=== PATIENT | male | born 1945 | race Caucasian/White ===

== ENCOUNTER 2017-01-16 09:32 | Emergency (ER) | payer MEDICARE, MEDICAID ==
[2017-01-16 09:59] VITALS: BP 143/71
--- NOTE | 2017-01-16 11:30 | UC ---
Respiratory Complaint HPI - HPI Summary HPI Summary: Cough starting 2 days ago, had one temp taken of 99.5, usually "runs low." Today thick yellow production with cough. Hx of respiratory infections, not hospitalizations, per care worker. - History of Current Complaint Chief Complaint: UCRespiratory Stated Complaint: COUGH Time Seen by Provider: 01/16/17 11:15 Hx Obtained From: Family/Scarf And Anneal Operator Hx From Patient Unobtainable Due To: Dementia - cognitive impairment Onset/Duration: Gradual Onset, Lasting Days Timing: Constant Severity Initially: Mild Severity Currently: Mild Character: Cough: Productive Aggravating Factors: Nothing Alleviating Factors: Nothing Associated Signs And Symptoms: Negative: Chills, URI, Nasal Congestion - Allergies/Home Medications Allergies/Adverse Reactions: Allergies Allergy/AdvReac Type Severity Reaction Status Date / Time Metoclopramide [From Reglan] Allergy Severe mood Verified 01/16/17 09:59 changes Dantrolene [From Dantrium] Allergy Unknown Unknown Verified 01/16/17 09:59 Reaction Details Home Medications: Home Medications Calcium Carbonate-Vitamin D [Calcium + D3 600-200 mg-Unit] 1 tab PO DAILY [History Confirmed 01/16/17] Cholecalciferol [Vitamin D3] 1,000 unit PO DAILY 01/16/17 [History Confirmed ] Ferrous Sulfate TAB* 325 mg PO BID 01/16/17 [History Confirmed 01/16/17] Glumetza 1,000 mg PO BID 01/16/17 [History Confirmed 01/16/17] Levothyroxine TAB* [Synthroid TAB*] 50 mcg PO DAILY 01/16/17 [History Confirmed 01/16/17] Magnesium Oxide TAB* [MagOx 400 TAB*] 400 mg PO DAILY 01/16/17 [History Confirmed 01/16/17] Multivitamins/Minerals TAB* [Thera M Plus TAB*] 1 tab PO DAILY 01/16/17 [ History Confirmed 01/16/17] PMH/Surg Hx/FS Hx/Imm Hx Endocrine History Of: Denies: Diabetes Cardiovascular History Of: Denies: Cardiac Disorders Respiratory History Of: Denies: Asthma - Surgical History Surgical History: Yes Surgery Procedure, Year, and Place: ileostomy hernia repair 2011. colectomy 2010 - Family History Known Family History: Positive: Unknown - PT. HAS SEVERE MR , COULD NOT ASK ABOUT FAMILY HX - Social History Occupation: Disabled Lives: [facility] Alcohol Use: None Substance Use Type: None Smoking Status (MU): Never Smoked Tobacco Review of Systems Constitutional: Negative Skin: Negative Eyes: Negative ENT: Negative Respiratory: Cough Cardiovascular: Negative Gastrointestinal: Negative Genitourinary: Negative Motor: Negative Neurovascular: Negative Musculoskeletal: Negative Neurological: Negative Psychological: Negative All Other Systems Reviewed And Are Negative: Yes Physical Exam Triage Information Reviewed: Yes Appearance: Well-Appearing, No Pain Distress, Well-Nourished Vital Signs: Initial Vital Signs Temp 97.1 F 01/16/17 09:52 Pulse 95 01/16/17 09:52 Resp 20 01/16/17 09:52 BP 143/71 01/16/17 09:52 Pulse Ox 95 01/16/17 09:52 Vital Signs Reviewed: Yes Eye Exam: Normal Eyes: Positive: Conjunctiva Clear ENT: Positive: Pharynx normal, TMs normal - L TM poorly visualized due to lack of pt cooperation, Other: - copious drooling. Negative: Tonsillar swelling, Tonsillar exudate Neck exam: Normal Neck: Positive: Supple, Nontender Respiratory: Positive: Lungs clear, Normal breath sounds, No respiratory distress, No accessory muscle use Cardiovascular: Positive: RRR - high 90s on exam Musculoskeletal Exam: Other - contractures in hands, pt in WC Psychological Exam: Other - normal, per relations specialist Skin Exam: Normal UC Diagnostic Evaluation - Laboratory O2 Sat by Pulse Oximetry: 95 Respiratory Course/Dx - Differential Dx/Diagnosis Provider Diagnoses: acute bronchitis Discharge - Discharge Plan Condition: Stable Disposition: HOME Prescriptions: Azithromyxin CONSUELO (NF) [Z-Consuelo (Zithromax) 250 mg tabs #6] 2 tab PO .TODAY, THEN 1 DAILY #6 tab Patient Education Materials: Acute Bronchitis (ED) Referrals: LORENZO Ferrari [Primary Care Provider] - 1 Week Additional Instructions: As we discussed, I suspect Ernesto's illness is viral and so the antibiotic may not help him much at this time. I am prescribing it in the hopes of preventing bacterial complications. You can continue the respiratory checklist every shift for the next 5 days; if his cough is improving at that time you can stop after 01/21/17. If his cough is not improving in that time, please arrange for a follow-up visit with his primary care provider. Come back here or go to the emergency department at any time if he develops difficulty breathing, fever over 100F, or if he becomes lethargic (won't respond , eat, drink, or interact).
--- NOTE | 2017-01-16 12:06 | RAD ---
Indication: Cough. Fever. Comparison: None. Technique: Upright AP and lateral chest views. Report: Minimal linear subsegmental atelectasis at the LEFT lung base. No compelling alveolar consolidation without volume loss to suggest pneumonia. Suggestion of nonfocal central airway wall thickening. Negative for pleural effusion or pneumothorax. The heart, pulmonary vasculature, and mediastinal contours are unremarkable. IMPRESSION: The constellation of findings is concerning for central airways inflammation/bronchitis. Negative for confluent alveolar consolidation.
[2017-01-16] MEDS ORDERED: Azithromycin TAB* 250 MG PO ONE (12:20)
== END 2017-01-16 12:26 | disposition home or self-care (01) ==
LOC: UCCORT 09:32
DX: J20.9 Acute bronchitis, unspecified (principal); R09.81 Nasal congestion; F01.50 Vascular dementia, unspecified severity, without behavioral disturbance, psychotic disturbance, mood disturbance, and anxiety; F72 Severe intellectual disabilities; Z88.8 Allergy status to other drugs, medicaments and biological substances
CPT/HCPCS: 71020; 99212; A9270-GY; G0463

== ENCOUNTER 2018-02-01 16:09 | Emergency (ER) | payer MEDICARE, MEDICAID ==
--- NOTE | 2018-02-01 17:26 | UC ---
Skin Complaint HPI - HPI Summary HPI Summary: Pt nonverbal from a alf. pt noted to have rash on right upper back yesterday. Per report pt with temp 100 this morning Pt without h/o similar. no h /o MRSA. No shingles in alf. no apparent discomfort. No changes in activity - no changes in po, vomiting,cp, sob. + report of normal po, urine and BM Pt's medication list reviewed - History of Current Complaint Chief Complaint: UCSkin Time Seen by Provider: 02/01/18 17:15 Stated Complaint: SKIN COMPLAINT Hx Obtained From: Patient Hx From Patient Unobtainable Due To: Other - level 5 caveat- non verbal Pain Intensity: 0 - Allergy/Home Medications Allergies/Adverse Reactions: Allergies Allergy/AdvReac Type Severity Reaction Status Date / Time MS Metoclopramide Allergy Severe mood Verified 01/16/17 09:59 [From Reglan] changes MS Dantrolene [From Dantrium] Allergy Unknown Unknown Verified 01/16/17 09:59 Reaction Details dantrolene Allergy Unknown Verified 02/01/18 17:08 Reaction Details metoclopramide [From Reglan] Allergy See Comment Verified 02/01/18 17:08 Review of Systems Skin: Rash All Other Systems Reviewed And Are Negative: No - Comments Additional Review of Systems Comments: Pt non-verbal - level 5 caveat PMH/Surg Hx/FS Hx/Imm Hx Previously Healthy: Yes Cardiovascular History: Hypertension Neurological History: Seizures Psychological History: Other - MRCP Other Psychological History: MRCP - Surgical History Surgical History: Yes Surgery Procedure, Year, and Place: ileostomy hernia repair 2011. colectomy 2010 - Family History Known Family History: Positive: Unknown - PT. HAS SEVERE MR , COULD NOT ASK ABOUT FAMILY HX - Social History Occupation: Disabled Lives: [employer] Alcohol Use: None Substance Use Type: None Smoking Status (MU): Never Smoked Tobacco Physical Exam Triage Information Reviewed: Yes Appearance: Well-Appearing, No Pain Distress, Well-Nourished Vital Signs: Initial Vital Signs Temp 97.6 F 02/01/18 16:59 Pulse 63 02/01/18 16:59 Resp 20 02/01/18 16:59 BP 00/00 02/01/18 16:59 Pulse Ox 100 02/01/18 16:59 Eyes: Positive: Conjunctiva Clear ENT: Positive: Pharynx normal, TMs normal Dental Exam: Normal Neck exam: Normal Neck: Positive: Supple, Nontender Respiratory Exam: Normal Respiratory: Positive: Chest non-tender, Lungs clear, Normal breath sounds, No respiratory distress, No accessory muscle use Cardiovascular Exam: Normal Cardiovascular: Positive: RRR, No Murmur Abdominal Exam: Normal Abdomen Description: Positive: Nontender, No Organomegaly, Soft Bowel Sounds: Positive: Present Musculoskeletal: Positive: Other: - Pt wtih upper ext contracture - baseline per caregiver Neurological: Positive: Alert, Other: - increased muscle tone upper ext baseline Psychological Exam: Normal Skin: Positive: Other - right upper back pt with 2cm circular warmth area, not raise. 4 small punctate scabs in middle. No fluctuance. No drainage. no vesicals. Not apparent tenderness no other lesion Course/Dx - Course Course Of Treatment: pt with 2cm circuluar patch of erythema right upper back. pt non verbal MR. no apparent discomfort with palpation. Unclear if early shingles of cellultis. Will give Rx valtrex and Doxycycline. f/u withPCP in 2 days - anticipate one treatment will be stopped. wound covered with shirt. APAP prn. Aide expressed comfort and agreement with plan. forms complete. No discharge to culture - Diagnoses Provider Diagnoses: acute rash Discharge - Discharge Plan Condition: Stable Disposition: HOME Prescriptions: DOXYcycline CAP(*) [DOXYcycline 100MG CAP(*)] 100 mg PO BID #14 cap ValACYclovir (*) [Valtrex 1 GM(*)] 1 gm PO TID #21 tab Patient Education Materials: Acute Rash (ED) Referrals: LORENZO Ferrari [Primary Care Provider] - Additional Instructions: The doctor that evaluated you today is not sure if your rash is related to early shingles or a skin infection such as cellulitis. You have been started on medication to treat both of these. The rash has been outlined with a marking been you should be rechecked in 48 hours If the rash appears to spread in blotchy areas concerning for shingles. If you do not develop new lesions or the reddness gets smaller, likely a skin infection and your follow-up provider may discontinue the anti-viral Okay to give Tylenol as needed for fever or pain Contact his doctor to schedule a recheck in 2 days
[2018-02-01 17:56] VITALS: BP 148/90
== END 2018-02-01 17:57 | disposition home or self-care (01) ==
LOC: UCCORT 16:09
DX: R21 Rash and other nonspecific skin eruption (principal)
CPT/HCPCS: 99212; G0463

== ENCOUNTER 2018-07-10 18:32 | Emergency (ER) | payer MEDICARE, MEDICAID ==
[2018-07-10 19:50] VITALS: BP 174/83
--- NOTE | 2018-07-10 20:02 | UC ---
Skin Complaint HPI - HPI Summary HPI Summary: Patient is 73 year old nursing home resident at [facility] ,who present today with redness on the ankle for past few days. He is here with staff from nursing home/see consult and staff / youth care specialist reports that has raised pustule on right inner ankle with blackened area in the middle, redness around this area No other associated symptoms: As per youth care specialist, no fever, chills, , vomiting , diarrhea or constipation. - History of Current Complaint Chief Complaint: UCSkin Time Seen by Provider: 07/10/18 19:54 Stated Complaint: SKIN CONCERN - RT ANKLE Hx Obtained From: Family/Commercial Truck Driver - taker away [facility] Hx From Patient Unobtainable Due To: Dementia Pain Intensity: 0 - Allergy/Home Medications Allergies/Adverse Reactions: Allergies Allergy/AdvReac Type Severity Reaction Status Date / Time dantrolene Allergy Intermediate mood Verified 07/10/18 19:52 changes metoclopramide [From Reglan] Allergy See Comment Verified 07/10/18 19:52 Home Medications: Home Medications clonazePAM TAB(*) [KlonoPIN TAB(*)] 0.5 mg PO TID PRN 07/10/18 [History Confirmed 07/10/18] Review of Systems Constitutional: Negative Skin: Other - abscess/ cellulitis Eyes: Negative ENT: Negative Respiratory: Negative Cardiovascular: Negative Gastrointestinal: Negative Genitourinary: Negative Motor: Negative Neurovascular: Negative Musculoskeletal: Negative Neurological: Negative Psychological: Negative Is Patient Immunocompromised?: No All Other Systems Reviewed And Are Negative: Yes PMH/Surg Hx/FS Hx/Imm Hx Previously Healthy: Yes Endocrine History: Diabetes Other Endocrine History: negative Other Cardiovascular History: negative Other Respiratory History: negative GI/ History: Other - condon's esophagus Other GI/ History: negative Neurological History: Dementia, Seizures, Other - Cerebral palsy Profound MR Other Neurological History: negative Other Psychological History: negative Other Cancer History: negative - Surgical History Surgical History: Yes Surgery Procedure, Year, and Place: ileostomy hernia repair 2011. colectomy 2010 - Family History Known Family History: Positive: Unknown - PT. HAS SEVERE MR , COULD NOT ASK ABOUT FAMILY HX - Social History Alcohol Use: None Substance Use Type: None Smoking Status (MU): Never Smoked Tobacco Physical Exam - Summary Physical Exam Summary: Physical Exam: Const: Appears well. No signs of apparent distress present. Alert and oriented x 3. Musculo: wheel chair for ambulation Head/Face: Atraumatic, normocephalic on inspection. Eyes: EOMI and PERRLA in both eyes. Conjunctivae clear. No discharge noted ENT: Hearing normal Respiratory: Respirations are unlabored. Lungs clear to auscultation bilaterally CVS: Regular rate and Rhythm, S1S2 normal , Extremities: Peripheral circulation is grossly normal. Pulses 2+ Abdomen : Soft non tende Skin: small 1 inch x 1 inch sized area or erythema and small abscess / with small amount of pus noted at the medial malleolus of right ankle. no drainage Neuro: Mood is normal. Affect is normal. Triage Information Reviewed: Yes Vital Signs: Initial Vital Signs Temp 98.4 F 07/10/18 19:43 Pulse 66 07/10/18 19:43 Resp 18 07/10/18 19:43 BP 174/83 07/10/18 19:43 Pulse Ox 96 07/10/18 19:43 Vital Signs Reviewed: Yes Course/Dx - Course Course Of Treatment: During the visit today, we discussed the findings and further plan with the disabilities caregiver. Plan to start on keflex. I will prescribe the medication to the pharmacy . OK to go to the adult day care . Can resume his normal activities and medication. Follow up with PCP in 2 o 3 days. - Diagnoses Provider Diagnoses: Cellulitis. Abscess Discharge - Sign-Out/Discharge Documenting (check all that apply): Patient Departure - Discharge Plan Condition: Stable Disposition: NURSING HOME FACILITY Prescriptions: Cephalexin CAP* [Keflex CAP*] 500 mg PO BID 10 Days #20 cap Patient Education Materials: Cellulitis (ED), Abscess (ED) Referrals: No Primary Care Phys,NOPCP [Primary Care Provider] - Additional Instructions: Please start taking the medication as prescribed to the pharmacy . Follow up with your primary care doctor in 2 - 3 days. Patients blood pressure slightly high in Urgent care today , plan follow up with PCP for better control Return to Urgent care / ER if symptoms get worse. - Billing Disposition and Condition Condition: STABLE Disposition: Correction Facility Images Feet (Multiple View): 1 - small cellulitis
== END 2018-07-10 20:12 ==
LOC: UCCORT 18:32
DX: L03.115 Cellulitis of right lower limb (principal); L02.415 Cutaneous abscess of right lower limb
CPT/HCPCS: 99212; G0463

== ENCOUNTER 2018-11-22 09:23 | Emergency (ER) | payer MEDICARE, MEDICAID ==
[2018-11-22 10:10] VITALS: BP 100/60
--- NOTE | 2018-11-22 10:23 | UC ---
UC General HPI - HPI Summary HPI Summary: Pt with CP, MRJeremy non verbal. 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 pt with fevers, T max 103 yesterday, cough, decreased appetite, decreased uop x 2 days. no n/v. no blood, black stool APAP this am. no apparent pain, weaker with ambulation Pt's MAR reviewed - History of Current Complaint Chief Complaint: UCGeneralIllness Stated Complaint: FEVER,COUGH Time Seen by Provider: 11/22/18 10:23 Hx Obtained From: Family/Supervisor Glycerin, Medical Records Onset/Duration: Gradual Onset Timing: Constant Pain Intensity: 0 - Allergy/Home Medications Allergies/Adverse Reactions: Allergies Allergy/AdvReac Type Severity Reaction Status Date / Time dantrolene Allergy Intermediate mood Verified 11/22/18 10:07 changes metoclopramide [From Reglan] Allergy See Comment Verified 11/22/18 10:07 Home Medications: Home Medications Aspirin 81 mg CHEW TAB* [Aspirin Low Dose TAB*] 81 mg PO DAILY 11/22/18 [ History Confirmed 11/22/18] Canagliflozin (NF) [Invokana (NF)] 100 mg PO 11/22/18 [History] Ferrous Sulfate 220 mg PO 11/22/18 [History] Fluorometholone 0.1% OPTH.CARA* [Fml 0.1% Opth.susp*] 1 drop .SEE ORDER 11/22/18 [History] Glimepiride 4 mg PO 11/22/18 [History] Levothyroxine TAB* [Synthroid TAB*] 75 mcg PO 0800 11/22/18 [History Confirmed 11/22/18] Magnesium Oxide [Magnesium] 11/22/18 [History] Omeprazole 40 mg PO 11/22/18 [History] Pravastatin (NF) [Pravachol (NF)] 20 mg PO 11/22/18 [History] Sitagliptin Phosphate [Januvia] 25 mg PO 11/22/18 [History] clonazePAM [Clonazepam] 0.5 mg PO 11/22/18 [History Confirmed 11/22/18] PMH/Surg Hx/FS Hx/Imm Hx Previously Healthy: Yes - Surgical History Surgical History: Yes Surgery Procedure, Year, and Place: ileostomy hernia repair 2011. colectomy 2010 - Family History Known Family History: Positive: Unknown - PT. HAS SEVERE MR , COULD NOT ASK ABOUT FAMILY HX, Non-Contributory - Social History Occupation: Disabled Lives: Long-Term Alcohol Use: None Substance Use Type: None Smoking Status (MU): Never Smoked Tobacco Review of Systems All Other Systems Reviewed And Are Negative: Yes Constitutional: Positive: Fever, Other - decreased po Respiratory: Positive: Cough Gastrointestinal: Negative: Vomiting, Diarrhea - Comments Additional Review of Systems Comments: limited - pt nonverbal Physical Exam - Summary Physical Exam Summary: Vital Signs Reviewed: Yes alert, no distress Eyes: Conjunctiva Clear, VU. EOM intact and full ENT: Hearing grossly normal TM x 2 clear, mmdry uvula midline, no exudate, no erythema Neck: Positive: Supple Respiratory: mild scatterd wheeze, no rhonci + BS throughout RRR no m/r abd soft + BS nt/nd no guarding, no distension, colostomy Musculoskeletal Exam: FLORES x 4 without difficulty Strength Intact, ROM Intact Neurological: Positive: Alert - baseline per caregiver Skin: Positive: no rash, no ecchymosis Triage Information Reviewed: Yes Vital Signs: Initial Vital Signs Temp 100.5 F 11/22/18 10:05 Pulse 80 11/22/18 10:05 Resp 20 11/22/18 10:05 BP 100/60 11/22/18 10:05 Pulse Ox 97 11/22/18 10:05 Course/Dx - Course Course Of Treatment: Pt with CP, MR non verbal presents with fevers, cough, decreased po, unstead gait and decrease UOP. Pt VSS. concern for infection given sx. pt with h/o electrolyte changes per house records. recommend pt to ED for further eval. report to Dr. Arvind Jules at [facility] - Diagnoses Provider Diagnosis: Fever, Cough, Weakness Discharge - Sign-Out/Discharge Documenting (check all that apply): Patient Departure All imaging exams completed and their final reports reviewed: No Studies - Discharge Plan Condition: Good Disposition: HOME-RECOMMEND TO ED Patient Education Materials: Acute Cough (ED) Referrals: No Primary Care Phys,NOPCP [Medical Doctor] - Additional Instructions: The doctor that evaluated you today thinks that you need additional testing that can be completed the emergency department. It is recommended that you go directly to emergency department for further evaluation. This evaluation may include blood work or imaging. This testing will be directed and decided by the provider that evaluate you at the emergency department. If pain becomes worse, you feel lightheaded, you have uncontrolled vomiting, or you have any other concerns while you are being driven to emergency department as recommended to pullover and contact 911. - Billing Disposition and Condition Condition: GOOD Disposition: Home-Recommend to ED
== END 2018-11-22 10:37 | disposition home health service (06) ==
LOC: UCCORT 09:23
DX: R50.9 Fever, unspecified (principal); R05 Cough; R53.1 Weakness; Z88.8 Allergy status to other drugs, medicaments and biological substances; G80.9 Cerebral palsy, unspecified; F72 Severe intellectual disabilities; F80.9 Developmental disorder of speech and language, unspecified; Z93.3 Colostomy status; Z93.6 Other artificial openings of urinary tract status
CPT/HCPCS: 99212; G0463